=== PATIENT | female | born 1945 | race Caucasian/White ===

== ENCOUNTER 2016-10-15 05:33 | Day surgery (SDC) | payer MEDICARE ==
[2016-10-15] VITALS (12 sets, daily range): BP systolic 108–124; BP diastolic 57–78; PULSE 57–78; RESP 13–20; O2SAT 93–100
[~2016-10-15] VITALS: Ht 162.6 cm; Wt 82.5 kg
[2016-10-15] MEDS: Lactated Ringer's 1,000 ML IV SCH ×3 (05:00→08:07)
[~2016-10-15 05:33] MED LIST: ASCO500C6 PO; ASPI-973 PO; ATOR80TA PO; CARV6.252 PO; CHOL10008 PO; CYAN500 PO; KLO5T PO; METR45CR2 TOP; MULT-1018 PO; vitamin b6
[2016-10-15] MEDS ORDERED: Ondansetron 2 mg/mL 2 mL Inj ONE (05:34)
[2016-10-15] MEDS ORDERED: Lidocaine PF 1% 30 mL Inj ONE (05:34)
[2016-10-15] MEDS ORDERED: Propofol 10,000 mCg/mL 20 mL Inj ONE (05:34)
[2016-10-15] MEDS ORDERED: Glycopyrrolate 0.2 MG/ML 1mL Inj ONE (05:34)
[2016-10-15] MEDS ORDERED: MetoCLOpramide 5 mg/mL 2 mL Inj ONE (05:34)
[2016-10-15] MEDS ORDERED: fentaNYL-PF 50 mCg/mL 2 mL Inj ONE (05:34)
[2016-10-15] MEDS ORDERED: Phenylephrine/NS 100 mCg/mL 10 mL Syringe IVPUSH ONE (05:34)
[2016-10-15] MEDS ORDERED: Dexamethasone 4 mg/mL Inj ONE (05:34)
[2016-10-15] MEDS ORDERED: Rocuronium 10 mg/mL 5 mL Inj ONE (05:34)
[2016-10-15] MEDS ORDERED: Succinylcholine Chloride 20 mg/mL 5 mL Inj ONE (05:34)
[2016-10-15] MEDS ORDERED: Neostigmine 1 mg/mL 10 mL Inj ONE (05:34)
[2016-10-15] MEDS ORDERED: CeFAZolin Inj 2 GM in IV Premix 1 EACH IV ONE (06:30)
[2016-10-15 06:33] LABS: BASOPHILS % (AUTO) 0.7 % (0-3); EOSINOPHILS % (AUTO) 9.6 % (0-5); MONOCYTES % (AUTO) 11.8 % (4-12); Mean Corpuscular Hemoglobin 30.3 pg (27.0-35.0); Mean Corpuscular Volume 89.7 fL (81-100); Platelet Count 232 bil/L (150-400)
[2016-10-15] MEDS ORDERED: Lactated Ringer's 1,000 ML IV SCH (07:13)
[2016-10-15] MEDS ORDERED: Lactated Ringer's 500 ML IV PRN (07:13)
--- NOTE | 2016-10-15 07:13 | PCM.HPANE ---
Patient Data Date of Service: Oct 15, 2016 Surgeon Admitting Provider: Attending Provider:Mia Villagomez MD Primary Care Physician:Humble Vogt MD Other Provider: Reason for Visit Vaginal Vault Prolapse After Hysterectomy Ht/WT & BMI Height (Feet): 5 Height (Inches): 4 Weight (Kilograms): 84.37 Body Mass Index 31.00 Allergies Coded Allergies: codeine (Verified Allergy, Severe, NAUSEA, DIZZINESS, 04/06/16) Past Anesthesia History Anesthesia History: Denies:: Abnormal Airway, Anesthesia Reactions, Difficult Intubation, Fam Anesthesia Reaction, Fam Malignant Hypertherm, Malignant Hyperthermia Diabetes History Hx Diabetes?: No MRSA MRSA: No Medications Blood Thinner: Aspirin Hypertension Medication: Yes Home Meds Incl Beta Maegan: Yes Date Beta Maegan Taken: Oct 14, 2016 Time Beta Maegan Taken: 08:00 Reported Medications Cholecalciferol (Vitamin D3) (Vitamin D3)1,000 Unit Tab.chew1,000 Unit PO DAILY 10/14/16 Ascorbic Acid (Vitamin C)500 Mg Capsule.er500 Mg PO DAILY 10/14/16 Cyanocobalamin (Vitamin B12)500 Mcg Tablet1,000 Mcg PO DAILY 10/14/16 [vitamin b6] No Conflict CheckUnknown Dose DAILY 10/14/16 Metronidazole (Metrocream)45 Gm Cream..g.1 Applic TOP BID #45 GM Ref 0 10/14/16 Multivitamin (Multi Vitamin Daily)1 Each Tablet1 Each PO DAILY 30 Days Ref 0 10/14/16 Clonazepam 0.5 Mg Tablet0.5 Mg PO BID PRN For Anxiety Ref 0 10/14/16 Carvedilol 6.25 Mg Tablet6.25 Mg PO BID Ref 0 10/14/16 Atorvastatin (Lipitor)80 Mg [id number] Mg PO DAILY Ref 0 10/14/16 Aspirin 81 Mg Gnpbgn28 Mg PO DAILY Ref 0 10/14/16 Discontinued Reported Medications Clonazepam 0.5 Mg Tablet0.5 Mg PO BID PRN For Anxiety Ref 0 10/14/16 Cholecalciferol (Vitamin D3) (Vitamin D)1,000 Unit Tablet1,000 Unit PO DAILY #1 BOTTLE Ref 0 02/27/16 Ascorbate Calcium (Vitamin C)500 Mg [id number] Mg PO DAILY 02/27/16 Cyanocobalamin (Vitamin B12)500 Mcg [id number] Mcg PO DAILY 02/27/16 [vitamin b6] No Conflict CheckUnknown Dose DAILY 02/27/16 Nitroglycerin SL (Nitrostat)0.4 Mg Tab.subl0.4 Mg SL Q5MIN PRN For Chest Pain # 1 BOTTLE 02/27/16 Metronidazole (Metrocream)45 Gm Cream..g.1 Applic TOP BID #45 GM Ref 0 02/27/16 Multivitamin (Multi Vitamin Daily)1 Each Tablet1 Each PO DAILY 30 Days Ref 0 02/27/16 Clonazepam 0.5 Mg Tablet0.5 Mg PO BID PRN For Anxiety Ref 0 02/27/16 Carvedilol 6.25 Mg Tablet6.25 Mg PO BID Ref 0 02/27/16 Atorvastatin (Lipitor)80 Mg Zeojny71 Mg PO DAILY Ref 0 02/27/16 Aspirin 81 Mg Gnlmft99 Mg PO DAILY Ref 0 02/27/16 Discontinued Scripts oxyCODONE 5 Mg/5 Ml Solution5-10 Mg PO Q3 PRN For Severe Pain #100 CC Prov:Moe Ibarra MD 03/10/16 History History of ENT Problems?: Yes HEENT History: Positive for:: Dysphagia (hx of) Denies:: Abnormal Airway Difficult Intubation Hearing Problem Sinus Problem Hx of Heart Problems?: Yes Cardiovascular History: Positive for:: Edema Heart Murmur (mild TR) Hypertension Peripheral Vascular Denies:: AICD Atrial Fibrillation Cardiac Surgery Chest Pain Congestive Heart Failure Irregular Heartbeat Pacemaker Thrombophlebitis Valvular Heart Disease (echo 2013- ef 60-65%) Hx of Respiratory Problem?: No Respiratory History: Positive for:: Dyspnea Denies:: Asthma COPD Chest Surgery Cough Emphysema Hemoptysis Oxygen Administration Pneumonia Tuberculosis Use of C-PAP Machine Hx Neurologic Problems?: Yes Neurological History: Positive for:: Headaches Denies:: Alzheimer's Disease CVA Dementia Parkinson's Disease Seizures Hx of GI Problems?: Yes Gastrointestinal History: Positive for:: Gastroesphageal Reflux (hx of barretts) Gastrointestinal Bleeding Hiatal Hernia (hx of lap ariel) Denies:: Cirrhosis Diverticulitis Heartburn Hepatitis Rectal Bleeding Hx of Problems?: No Genitourinary History: Denies:: HX of Hemodialysis Kidney Stones Urinary Tract Infection HX of Peritoneal Dialysis: No Female Hx: Denies:: Currently (hysterectomy) Endometriosis Pelvic Inflammatory Problems with Breasts? Skin History: Positive for:: History Skin Disorders? (ROSACEA) Denies:: Pressure Ulcers Hx Musculoskeletal Problems?: Yes Musculoskeletal History: Positive for:: Back Injury (hx of back surgery) Degenerative Joint (LUMBAR SPINAL STENOSIS=CURRENT PROBLEM) Osteoarthritis Denies:: Joint Replacement Musculoskeletal Trauma (prior hx of knee surgery) Hx of Psycho/Social Problems?: No Psycho Social History: Denies:: Anxiety Bipolar Disorder Hx Depression Hx Surgeries?: Yes (hysterectomy, ORIF ankle, back surgery, lap ariel) Hx Any Other Health Problems?: Yes Other History: Positive for:: Hospitalization (CHEST PAIN 2003) Denies:: Cancer Endocrine Disease Thyroid Disease History Blood Transfusions: Denies:: Blood Transfuse Reaction Blood Transfusions Hx Diabetes: No Hx Alcohol Use: NoHx Substance Use: No Smoking Status: Former Smoker Have You Smoked inLast 12 mo: No (30YROS AGO) Stop/Bang Treated for Sleep Apnea?: No Do You Have a CPAP Machine?: No S-Snoring: Do You Snore Loudly: No T-Tired: feel tired, fatigued: No O-Obsered: Observed not breath: No P-Blood Pressure: treated: Yes B- Body Mass Index > 35 kg/m2: No A- Age over 50: Yes N- Neck Large Circumference: No G- Gender Male: No KELLY Total Score: 2 Risk Assessment Category Category 1A: Patient has history of documented sleep apnea, and HAS NOT received any narcotic, sedative or anesthesia administration during this stay. Category 1B: Patient has history of documented sleep apnea, and HAS received any narcotic , sedative or anesthesia administration during this stay Category 2: Patient has SUSPECTED Obstructive Sleep Apnea, and HAS received any narcotic , sedative or anesthesia administration during this stay. Category 3: Patient has SUSPECTED Obstructive Sleep Apnea and HAS NOT received narcotic, sedative or anesthesia administration during this stay. Category 4: Outpatient in Procedural Areas with known sleep apnea or who screen positive for High Risk via the STOP/BANG questionnaire. Exam Exam Vital Signs 124/78, 76, 18, 94% RA, 36.3 General Appearance: Alert, Oriented X3, Cooperative HEENT/AIRWAY: MP 2, Neck Movement (OK), Mouth Opening (Wide) Lungs: Clear to Auscultation, Normal Air Movement Heart: Regular Rate/Rhythm, Normal S1, Normal S2, Murmur Meds/Labs/Diagnostics Admission Meds Current Medications Lactated Ringer's (Lr) 1,000 ml @ 120 mls/hr Q8H20M IV Last administered on t 05:38; Start 10/15/16 at 05:00; Stop 10/15/16 at 13:19 Labs Test 10/15/16 06:15 White Blood Count 5.5th/mm3 (3.8-10.1) Red Blood Count 4.68mil/mm3 (3.90-5.20) Hemoglobin 14.2g/dL (12.0-15.6) Hematocrit 42.0% (35.0-46.0) Mean Corpuscular Volume 89.7fL (81-100) Mean Corpuscular Hemoglobin 30.3pg (27.0-35.0) Mean Corpuscular Hemoglobin Concent 33.8% (32.0-37.0) Red Cell Distribution Width 13.1% (12.3-15.4) Platelet Count 232bil/L (150-400) Neutrophils (%) (Auto) 30.0% (40-74) Lymphocytes (%) (Auto) 47.9% (14-46) Monocytes (%) (Auto) 11.8% (4-12) Eosinophils (%) (Auto) 9.6% (0-5) Basophils (%) (Auto) 0.7% (0-3) Plan Impression Patient chart reviewed, patient interviewed and anesthestic plan with risks, benefits, and alternatives discussed, and informed consent obtained. NPO Status: 01/24/12 1000 ASA Physical Status: ASA2 Mod Systemic Disease Anesthetic Plan: GA Bene/Risks/Altern/Consents: Yes HP Complete Prior to Induction: Yes Newton Gallo MD Oct 15, 2016 06:51
[2016-10-15] MEDS ORDERED: fentaNYL-PF 50 mCg/mL 2 mL Inj IVPUSH PRN (07:15)
[2016-10-15] MEDS ORDERED: Ondansetron 2 mg/mL 2 mL Inj IVPUSH PRN (07:15)
[2016-10-15] MEDS ORDERED: Labetalol 5 mg/mL 4 mL Inj IV PRN (07:15)
[2016-10-15] MEDS ORDERED: EPHEDrine Sulfate 50 mg/mL Inj IVPUSH PRN (07:15)
[2016-10-15] MEDS ORDERED: MetoCLOpramide 5 mg/mL 2 mL Inj IVPUSH PRN (07:15)
[2016-10-15] MEDS ORDERED: HYDROmorphone 1 mg/mL Inj IVPUSH PRN ×2 (07:15→11:05)
[2016-10-15] MEDS ORDERED: Phenylephrine 10,000 mCg/mL Inj IVPUSH PRN (07:15)
[2016-10-15] MEDS ORDERED: Atropine 0.4 mg/mL Inj IVPUSH PRN (07:15)
[2016-10-15] MEDS ORDERED: Dexamethasone 4 mg/mL Inj IVPUSH PRN (07:15)
[2016-10-15] MEDS ORDERED: Sodium Chloride LOK Flush 10 mL Syringe IVPUSH ONE (08:00)
[2016-10-15] MEDS ORDERED: Lidocaine 1%-Epi 1:100,000 20 mL Inj INJ ONE (08:00)
[2016-10-15] MEDS ORDERED: Estrogens Conjugated 30 Gm Vaginal Cream VAGINAL ONE (10:36)
[2016-10-15] MEDS ORDERED: Lactated Ringer's 1,000 ML IV ONE (10:40)
--- NOTE | 2016-10-15 11:10 | PCM.SURGOP ---
Surgical Operative Report Date of Service: Oct 15, 2016 Pre Operative Diagnosis 1. Cystocele 2. Rectocele 3. Vaginal vault prolapse after hysterectomy Post Operative Diagnosis 1. Cystocele 2. Rectocele 3. Vaginal vault prolapse after hysterectomy Procedure: 1. Anterior and posterior colporrhaphy 2. Sacral spinous ligament fixation 3. Cystoscopy of the bladder Surgeon and Gold Leaf Layer: Surgeon: Mia Villagomez MD Assistants: Damaris Pugh MD Resident: Kierra Stanley DO PGY1 Indication for Procedure 70 year-old 2 para 2 with history of previous hysterectomy who has vaginal vault prolapse after hysterectomy with a grade 3 cystocele and grade 2 rectocele that are symptomatic. Findings: Exam under anesthesia showing a grade 3 cystocele and grade 2 rectocele. The apex of the vagina was not supported well and prolapsed into the lower third of the vagina when the patient was under anesthesia. On cystoscopy there were no sutures noted in the bladder and there was bilateral spillage of urine from both ureters and the procedure. There were some small brown appearing bladder stones that were less than 2 mm in diameter. Procedure Details The patient was taken to the operating room where her general anesthesia was obtained without difficulty. She was placed in a lithotomy position in the [facility] and prepared and draped in normal sterile fashion. Examination anesthesia was performed with the above-noted findings. An anterior colporrhaphy was performed first. A Shaikh catheter was inserted and the bladder drained. 1% lidocaine with epinephrine mixed with normal saline was used for hydrodissection between the vaginal epithelium and the bladder. The vagina was incised in the midline over the cystocele and the underlying bladder was dissected off with blunt and sharp dissection. This was taken up to the level of the vaginal cuff. Several interrupted sutures of 0 Vicryl were used to imbricate the bladder. Once the bladder was reduced the vaginal epithelium was trimmed slightly and the vagina reapproximated with 0 Vicryl suture in a running, locking fashion. At this point our attention was turned to the patient's posterior wall and a sacrospinous ligament fixation and posterior colporrhaphy were performed. 1% lidocaine with epinephrine that was diluted in normal saline was again used for hydrodissection. Vagina was incised in the midline over the underlying rectocele. The underlying rectum was dissected off of the vaginal epithelium with blunt and sharp dissection. At this point the pararectal space on the right was entered bluntly and the spinal process on the right was identified and the sacrospinous ligament was exposed. A Capio device was used to place a permanent suture of 0 Polysorb 2.5 to 3 cm from the spinous process into the sacrospinous ligament. This suture was anchored to the vaginal cuff using a free needle. The there was a fascial defect that was repaired with several interrupted sutures of 0 Vicryl suture. The remaining bulging rectum was imbricated with several more sutures of 0 Vicryl suture. The Polysorb suture was then tied anchoring the apex of the vagina to the right uterosacral ligament. The vaginal epithelium was reports made with 0 Vicryl suture in a locking fashion. A rectal exam was performed and the rectum was free of any suture. A cystoscopy the bladder was then performed with the above-noted findings. All attachments were then removed from the patient's bladder and Shaikh catheter placed. A vaginal pack was inserted with Premarin cream in case. All lap instrument and needle counts correct 2 at the end of the procedure and the patient was taken to the recovery room awake and in good condition. Complications There were no periprocedural complications identified. Surgical Specimen Removed: No Specimen sent to Pathology: No Anesthetic Plan: GA Grafts, Implants: None Output, Estimated Blood Loss: 100 Blood Administration during ji: No Catheters: Urethral 2 Way Mia Caruso MD Oct 15, 2016 11:10
--- NOTE | 2016-10-15 11:21 | PCM.ANEP1 ---
Post Anesthesia Phase 1 PACU Phase 1 Assessment Date of Service: Oct 15, 2016 Vital Signs Vital Signs Date Time Temp Pulse Resp B/P Pulse Ox O2 Delivery O2 Flow Rate FiO2 10/15/16 11:20 69 14 114/58 98 Simple Mask 8 10/15/16 11:15 37.1 66 13 122/66 99 Simple Mask 8 10/15/16 06:15 36.3 76 18 124/78 94 Room Air Anesthetic Administered: GA Level of Alertness: Sleeping, hard to arouse BECKMAN's with Equal Strength: Yes Pain: No Nausea or Vomiting: No Oxygen Delivery: Simple Mask Lungs: Normal Air Movement Newton Gallo MD Oct 15, 2016 11:21
[2016-10-15] MEDS ORDERED: Polyethylene Glycol (PEG) 17 Gm Powder PO PRN (11:30)
[2016-10-15] MEDS ORDERED: diphenhydrAMINE 25 mg Capsule PO PRN (11:30)
--- NOTE | 2016-10-15 12:40 | NUR ---
Arrival to room 247-1 pt arrived to room on stretcher from PACU Able to scoot self onto bed [place]. arrived within 30 minutes.
--- NOTE | 2016-10-15 12:41 | PCM.ANEP2 ---
Post Anesthesia Evaluation ASA/CMS Post Anesthesia Date of Service: Oct 15, 2016 VS in Patient's Normal Range?: Yes Resp Stable; Airway Patent?: Yes CV Function & Hydration Stable: Yes Mental Status Recovered?: Yes Pain control Satisfactory?: Yes N/V Control Satisfactory?: Yes Newton Gallo MD Oct 15, 2016 12:40
--- NOTE | 2016-10-15 18:17 | NUR ---
mobiltiy/pain patient able to amb in [place] 100ft, holding onto siderails pt c/o BUSBY and perineal pain - accepted toradol with some relief. Didn't want narcotic at this time as she has family visiting. No drainage on walt-pad. Shaikh draining clear yellow urine.
[2016-10-15] MEDS: oxyCODONE-Acetamin 5-325 mg Tablet PO PRN (20:11)
[2016-10-16] MEDS: oxyCODONE-Acetamin 5-325 mg Tablet PO PRN (03:25)
[2016-10-16 05:57] VITALS: BP 100/53; PULSE 60; RESP 16; O2SAT 95
--- NOTE | 2016-10-16 06:19 | NUR ---
Shift Note Assumed pt care 1900, pt has F16 erickson patent, draining well, has vaginal packing, no drain throughout night, pt pain managed with PRN PO percocet, effective per pt report, qhrly checks done, call light in reach.
[2016-10-16 07:35] VITALS: BP 99/53; PULSE 58
[2016-10-16 08:40] LABS: Mean Corpuscular Hemoglobin 29.6 pg (27.0-35.0); Mean Corpuscular Volume 91.2 fL (81-100)
--- NOTE | 2016-10-16 09:14 | PCM.DIGYN ---
Surgical Discharge Instruction Dates of Hospitalization Date of Hospital Admission 10/15/16 Providers Admitting Physician: Primary Care Physician: Humble Vogt MD Attending Physician: Mia Villagomez MD Diagnosis at Time of Discharge Diagnosis at time of discharge 70 yo female postop day 1 after anterior and posterior colporrhaphy, sacrospinous ligament fixation, and cystoscopy of the bladder 1. Cystocele 2. Rectocele 3. Vaginal vault prolapse after hysterectomy Problems: Diet Discharge Diet: No restrictions Activity Discharge Activity-General: Try not to overdue, Be up and about, Balance rest and activity, Activity as pain allows, No lifting >10 pounds for 4-6 weeks, No driving while taking narcotic Dressing and Incisional Care Hygiene: May shower Additional Instructions Discharge Instructions You may use the prescription for Percocet that was given to you at your previous appointment as needed for pain. Percocet can cause you to become constipated. Prescription for Colace has been sent to your pharmacy. You may notice some bleeding/discharge. This is normal but if it becomes heavier or more frequent please call the office to notify us immediately. Please call [facility] to schedule follow-up appointment. Phone number is [phone]. Follow Up Plan Follow Up Plan Follow-up at [facility]. Follow-up Provider (F9): Mia Villagomez MD Follow-up appointment: As previously arranged Call your provider for: Fever, Chills, Shortness of breath, Vomitting, Drainage at incision, Heavy vaginal bleeding, Wound redness, Increasing pain RUSS VALENTINE DO Oct 16, 2016 09:14
--- NOTE | 2016-10-16 11:09 | PCM.DC.SUR ---
Discharge Summary Date of Service: Oct 16, 2016 Date of Hospital Admission: 10/15/16 Date of Operation(s): 10/15/16 Date of Discharge: 10/16/16 Diagnosis at Time of Discharge 70 yo female postop day 1 after anterior and posterior colporrhaphy, sacrospinous ligament fixation, and cystoscopy of the bladder 1. Cystocele 2. Rectocele 3. Vaginal vault prolapse after hysterectomy Problems: Operation Anterior and posterior colporrhaphy, sacrospinous ligament fixation, and cystoscopy of the bladder Brief History and Physical: 70 year-old 2 para 2 with history of previous hysterectomy who has vaginal vault prolapse after hysterectomy with a grade 3 cystocele and grade 2 rectocele that are symptomatic. Hospital Course: Patient underwent anterior and posterior colporrhaphy, sacrospinous ligament fixation, and cystoscopy of the bladder on 10/15/16. Patient was admitted overnight for observation. Vaginal packing and Shaikh were removed on the morning of 10/16/16 without difficulty or bleeding. Patient has minimal pain that is controlled currently with Percocet. Patient is able to ambulate and urinate without difficulty. Tolerating oral intake without nausea or vomiting. Disposition: Patient met all postoperative goals prior to discharge. Follow-up Plan: [facility] ([vitamin b6]) Unknown Dose DAILY (Reported) Ascorbic Acid (Vitamin C) 500 Mg Capsule.er 500 MG PO DAILY (Reported) Aspirin (Aspirin) 81 Mg Tablet 81 MG PO DAILY (Reported) Atorvastatin (Lipitor) 80 Mg Tablet 80 MG PO DAILY (Reported) Carvedilol (Carvedilol) 6.25 Mg Tablet 6.25 MG PO BID (Reported) Cholecalciferol (Vitamin D3) (Vitamin D3) 1,000 Unit Tab.chew 1,000 UNIT PO DAILY (Reported) Clonazepam (Clonazepam) 0.5 Mg Tablet 0.5 MG PO BID PRN PRN For Anxiety ( Reported) Cyanocobalamin (Vitamin B12) 500 Mcg Tablet 1,000 MCG PO DAILY (Reported) Metronidazole (Metrocream) 45 Gm Cream..g. 1 APPLIC TOP BID (Reported) Multivitamin (Multi Vitamin Daily) 1 Each Tablet 1 EACH PO DAILY (Reported) Discharge Medications: Percocet and Colace given to patient at preoperative appointment. Additional Information Patient discharge instructions: You may use the prescription for Percocet that was given to you at your previous appointment as needed for pain. Percocet can cause you to become constipated. Prescription for Colace has been sent to your pharmacy. You may notice some bleeding/discharge. This is normal but if it becomes heavier or more frequent please call the office to notify us immediately. [facility] to schedule follow-up appointment. Phone number is [phone]. RUSS VALENTINE DO Oct 16, 2016 11:09
--- NOTE | 2016-10-16 11:09 | NUR ---
Status Pt seen by MD at bedside this am 0730. Vaginal packing and erickson removed. Pt denies bleeding so far this am. Able to get up and ambulate in hallway. Denies need for laxatives at this time. Pain controlled. Tolerated breakfast. Addendum: 10/16/16 at 1148 by NAHED WOODRUFF RN Pt able to urinate (clear yellow) prior to d/c.
[2016-10-16 11:40] VITALS: BP 112/67
--- NOTE | 2016-10-16 11:46 | NUR ---
DC Pt dc'd in with and UA at 1146. Stable. All discharge instructions and signs/symptoms to monitor reviewed and pt verbalized understanding. Per Dr. Stanley, pt to restart ASA on Friday. All belongings with pt. IV dc'd w/o complication. Addendum: 10/16/16 at 1154 by NAHED WOODRUFF RN aware of WBC count prior to dc.
--- NOTE | 2016-10-16 15:41 | NUR ---
Social Work Note - Initial Assessment/Discharge: D/A: See Initial Assessment. The Pt is a 70 y/o female that is listed as [facility] for vaginal vault prolapse after hysterectomy. The Pts PCP is MD Humble Vogt and her insurance is [employer], unknown LTC insurance and reports having VA benefits through her . EMR reviewed. SW met with the Pt and her to explain role and discuss discharge planning. The Pt lives independently with her in [place] in a one story home. Pt reports having Advanced Directive paperwork at home, copy requested. The Pt reports having a shower chair and no other DME. No HH/SNF history reported. The Pt denies any needs at this time. SW to follow if needs arise. P: The Pt to discharge home today with family providing POV transportation. The Pt denies any needs at this time. SW to follow if needs arise. Sammi Bazan MSW [employer] LYNDON Ramirez
--- NOTE | 2016-10-16 15:53 | NUR ---
Social Work Note - Initial Assessment/Discharge: D/A: See Initial Assessment. 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 The Pts PCP is MD Humble Vogt and her insurance is [employer] Medicare, unknown LTC insurance and reports having VA benefits through her . EMR reviewed. SW met with the Pt and her to explain role and discuss discharge planning. The Pt lives independently with her in [place] in a one story home. Pt reports having Advanced Directive paperwork at home, copy requested. The Pt reports having a shower chair and no other DME. No HH/SNF history reported. The Pt denies any needs at this time. SW to follow if needs arise. P: The Pt to discharge home today with family providing POV transportation. The Pt denies any needs at this time. SW to follow if needs arise. LYNDON Zamora MSW Addendum: 10/16/16 at 1554 by GEORGETTE SWIFT Amended: Links added.
== END 2016-10-16 11:35 | disposition home or self-care (01) ==
LOC: SAS 05:33 → MOC 13:11 → SAS 10-16 11:35
PROVIDERS: ATTEND Obstetrics & Gynecology
DX: N99.3 Prolapse of vaginal vault after hysterectomy (principal); G89.18 Other acute postprocedural pain; I10 Essential (primary) hypertension; I73.9 Peripheral vascular disease, unspecified; K44.9 Diaphragmatic hernia without obstruction or gangrene; K21.9 Gastro-esophageal reflux disease without esophagitis; Z79.82 Long term (current) use of aspirin; Z87.891 Personal history of nicotine dependence; Z90.710 Acquired absence of both cervix and uterus
CPT/HCPCS: 36415; 57260; 57282; 80048; 85025; 85027; 96374; J0330; J0690; J1100; J1170; J1885; J2250; J2370; J2405; J2710; J2765; J3010; J7120